=== PATIENT | female | born 1960 | race Caucasian/White ===

== ENCOUNTER → 2016-06-06 | Outpatient (CLI) | payer BC ==
[~2016-06-06] MED LIST: COLACE-DPS100 MG PO; DECADRON-DPS4 MG PO; GLUCOPHAGE-DPS500 MG PO; HYDROCODONE 5MG/5 MG PO; LIPITOR DPS20 MG PO; PROTONIX40 MG PO; TARKA ER 2-1801 EACH PO; THERA1 EACH PO
== END | disposition home or self-care (01) ==
LOC: PTH.S 09:30 → RAD.S 10:00
DX: D33.3 Benign neoplasm of cranial nerves (principal); Z86.39 Personal history of other endocrine, nutritional and metabolic disease

== ENCOUNTER → 2016-12-13 | Outpatient (CLI) | payer BC | END | disposition home or self-care (01) | LOC: PTH.S 06:59 → RAD.S 07:45 | DX: D33.3 Benign neoplasm of cranial nerves (principal); Z86.39 Personal history of other endocrine, nutritional and metabolic disease ==